=== PATIENT | female | born 1965 | race Caucasian/White ===

== ENCOUNTER 2018-10-07 15:16 | Emergency (ER) | payer MEDICARE, MEDICAID ==
[~2018-10-07] VITALS: Ht 160 cm; Wt 59.1 kg
[~2018-10-07 15:16] MED LIST: LISI-660 PO; ROSU10TA22 PO
[2018-10-07 15:18] VITALS: BP 101/48
[2018-10-07] MEDS ORDERED: LISI-660 PO (15:28)
[2018-10-07] MEDS ORDERED: ROSU10TA22 PO (15:28)
== END 2018-10-07 15:28 | disposition left against medical advice (07) ==
LOC: EMS 15:17
DX: M53.3 Sacrococcygeal disorders, not elsewhere classified (principal); Z53.21 Procedure and treatment not carried out due to patient leaving prior to being seen by health care provider